=== PATIENT | female | born 1975 | race Caucasian/White ===

== ENCOUNTER 2020-08-15 20:04 | Emergency (ER) | payer MEDICARE, MEDICAID ==
[~2020-08-15] VITALS: Ht 157 cm; Wt 82.5 kg
[~2020-08-15 20:04] MED LIST: ALBU8.5H4 IH; CYCL10TA9 PO; CYCL5TAB11 PO; NAPR-243 PO
--- NOTE | 2020-08-15 20:11 | ED EENT ---
History of Present Illness General Stated Complaint: DENTAL PAIN Source: patient Exam Limitations: no limitations History of Present Illness Date Seen by Provider: August 15, 2020 Time Seen by Provider: 20:09 Initial Comments Called to the ambulance bay to help this lady out of her car with a wheelchair because of her severe dental pain. She has been at [facility] 3 times over the past week and is scheduled to see a dentist on Monday of this upcoming week. She is on amoxicillin and hydrocodone 10/325. Timing/Duration: last week Severity: moderate Location: dental Associated Symptoms: denies symptoms Allergies and Home Medications Allergies Coded Allergies: No Known Drug Allergies (Unverified , 12/14/11) Home Medications Clindamycin HCl 300 Mg Capsule, 300 MG PO TID Prescribed by: ENEDELIA GONZALEZ on 08/15/202035 Cyclobenzaprine Hcl 5 Mg Tablet, 1 EACH PO QID PRN, (Reported) Cyclobenzaprine Hcl 10 Mg Tablet, 1 EACH PO Q8HR PRN FOR MUSCLE SPASMS Prescribed by: DARCY SHRESTHA on 12/14/111658 Hydrocodone/Acetaminophen 1 Each Tablet, 1 EACH PO Q4H PRN for NAUSEA/VOMITING Do not fill unless clindamycin is also filled Prescribed by: ENEDELIA GONZALEZ on 08/15/202035 Naproxen 500 Mg Tablet, 1 EACH PO TID PRN FOR PAIN Prescribed by: DARCY SHRESTHA on 12/14/111658 Patient Home Medication List Home Medication List Reviewed: Yes Review of Systems Review of Systems Constitutional: see HPI Eyes: No Symptoms Reported Ears: No Symptoms Reported Nose: no symptoms reported Mouth: see HPI Throat: no symptoms reported Respiratory: no symptoms reported Cardiovascular: no symptoms reported Musculoskeletal: no symptoms reported Physical Exam Vital Signs Vital Signs - First Documented 08/15/20 20:08 Pulse 99 Resp 20 B/P (MAP) 149/99 (116) Pulse Ox 97 O2 Delivery Room Air Height, Weight, BMI Height: '" Weight: lbs. oz. kg; BMI Method: General Appearance: WD/WN, no apparent distress, other (Hyperventilating) Eyes: bilateral eye normal inspection, bilateral eye PERRL, bilateral eye EOMI Ears: bilateral ear auricle normal, bilateral ear canal normal, bilateral ear TM normal Neck: non-tender, full range of motion Respiratory: no respiratory distress, no accessory muscle use Neurologic/Psychiatric: alert, normal mood/affect, oriented x 3 Skin: normal color, warm/dry Progress/Results/Core Measures Results/Orders Lab Results Laboratory Tests Test 08/15/20 20:08 08/15/20 20:16 Range/Units White Blood Count 7.1 4.3-11.0 10^3/uL Red Blood Count 4.84 3.80-5.11 10^6/uL Hemoglobin 13.4 11.5-16.0 g/dL Hematocrit 42 35-52 % Mean Corpuscular Volume 86 80-99 fL Mean Corpuscular Hemoglobin 28 25-34 pg Mean Corpuscular Hemoglobin Concent 32 32-36 g/dL Red Cell Distribution Width 13.4 10.0-14.5 % Platelet Count 391 130-400 10^3/uL Mean Platelet Volume 9.4 9.0-12.2 fL Immature Granulocyte % (Auto) 0 % Neutrophils (%) (Auto) 59 42-75 % Lymphocytes (%) (Auto) 27 12-44 % Monocytes (%) (Auto) 10 0-12 % Eosinophils (%) (Auto) 2 0-10 % Basophils (%) (Auto) 1 0-10 % Neutrophils # (Auto) 4.2 1.8-7.8 10^3/uL Lymphocytes # (Auto) 1.9 1.0-4.0 10^3/uL Monocytes # (Auto) 0.7 0.0-1.0 10^3/uL Eosinophils # (Auto) 0.2 0.0-0.3 10^3/uL Basophils # (Auto) 0.1 0.0-0.1 10^3/uL Immature Granulocyte # (Auto) 0.0 0.0-0.1 10^3/uL Sodium Level 135 135-145 MMOL/L Potassium Level 3.2 L 3.6-5.0 MMOL/L Chloride Level 101 98-107 MMOL/L Carbon Dioxide Level 22 21-32 MMOL/L Anion Gap 12 5-14 MMOL/L Blood Urea Nitrogen 12 7-18 MG/DL Creatinine 0.83 0.60-1.30 MG/DL Estimat Glomerular Filtration Rate > 60 BUN/Creatinine Ratio 14 Glucose Level 111 H 70-105 MG/DL Calcium Level 9.0 8.5-10.1 MG/DL Urine Color YELLOW Urine Clarity CLEAR Urine pH 6.0 5-9 Urine Specific [place] 1.020 1.016-1.022 Urine Protein NEGATIVE NEGATIVE Urine Glucose (UA) NEGATIVE NEGATIVE Urine Ketones NEGATIVE NEGATIVE Urine Nitrite NEGATIVE NEGATIVE Urine Bilirubin NEGATIVE NEGATIVE Urine Urobilinogen 0.2 < = 1.0 MG/DL Urine Leukocyte Esterase NEGATIVE NEGATIVE Urine RBC (Auto) TRACE-I NEGATIVE Urine RBC 0-2 /HPF Urine WBC RARE /HPF Urine Squamous Epithelial Cells 2-5 /HPF Urine Crystals NONE /LPF Urine Bacteria TRACE /HPF Urine Casts NONE /LPF Urine Mucus SMALL H /LPF Urine Culture Indicated NO Urine Opiates Screen POSITIVE H NEGATIVE Urine Oxycodone Screen NEGATIVE NEGATIVE Urine Methadone Screen NEGATIVE NEGATIVE Urine Propoxyphene Screen NEGATIVE NEGATIVE Urine Barbiturates Screen NEGATIVE NEGATIVE Ur Tricyclic Antidepressants Screen POSITIVE H NEGATIVE Urine Phencyclidine Screen NEGATIVE NEGATIVE Urine Amphetamines Screen NEGATIVE NEGATIVE Urine Methamphetamines Screen NEGATIVE NEGATIVE Urine Benzodiazepines Screen POSITIVE H NEGATIVE Urine Cocaine Screen NEGATIVE NEGATIVE Urine Cannabinoids Screen NEGATIVE NEGATIVE My Orders Orders - ENEDELIA GONZALEZ APRN Cbc With Automated Diff (08/15/20 20:08) Basic Metabolic Panel (08/15/20 20:08) Ua Culture If Indicated (08/15/20 20:08) Drug Screen Stat (Urine) (08/15/20 20:08) Ed Iv/Invasive Line Start (08/15/20 20:08) Ceftriaxone For Iv Use (Rocephin For I (08/15/20 20:15) Ketorolac Injection (Toradol Injection) (08/15/20 20:15) Lidocaine/Epi 1% 1:100,000 (Xylocaine /E (08/15/20 20:15) Ns Iv 1000 Ml (Sodium Chloride 0.9%) (08/15/20 20:15) Lidocaine/Epi 2% 1:100,000 (Xylocaine/Ep (08/15/20 20:19) Rx-Oxycodone/Apap 5-325 Mg (Rx-Percocet (08/15/20 20:45) Medications Given in ED Current Medications Medications Dose Ordered Sig/David Route Start Time Stop Time Status Last Admin Dose Admin Ceftriaxone Sodium 1000 mg/ Sterile Water 10 ml @ 200 mls/hr ONCE ONCE IV 08/15/20 20:15 08/15/20 20:17 DC 08/15/20 20:21 200 MLS/HR Ketorolac Tromethamine 30 mg ONCE ONCE IVP 08/15/20 20:15 08/15/20 20:16 DC 08/15/20 20:20 30 MG Vital Signs/I&O 08/15/20 20:08 Pulse 99 Resp 20 B/P (MAP) 149/99 (116) Pulse Ox 97 O2 Delivery Room Air Departure Communication (Admissions) 2047-did incision and drainage of the fluctuant abscess with only minimal purulent material expressed. This was done after inferior alveolar nerve block using 1.5 mL of 2% lidocaine with epinephrine and then some more local 0.5 mL of lidocaine with epinephrine. 11 blade scalpel was then used to make a small incision adjacent to the affected tooth. Impression Primary Impression: Dental abscess Disposition: HOME, SELF-CARE Condition: Stable Departure-Patient Inst. Decision time for Depature: 20:34 Referrals: COCO RICHARDSON DO (PCP) Primary Care Physician [facility]NN (Family) Primary Care Physician Patient Instructions: Dental Pain (DC) Add. Discharge Instructions: 1. Antibiotics as directed. Follow-up with your dentist. Stop the amoxicillin and change to clindamycin tomorrow. Scripts Clindamycin HCl (Clindamycin HCl) 300 Mg Capsule 300 MG PO TID, #21 CAP Prov: ENEDELIA GONZALEZ APRN 08/15/20 Hydrocodone/Acetaminophen (Hydrocodone-Acetamin 7.5-325) 1 Each Tablet 1 EACH PO Q4H PRN for NAUSEA/VOMITING, #10 TAB Do not fill unless clindamycin is also filled Prov: ENEDELIA GONZALEZ APRN 08/15/20 ENEDELIA GONZALEZ APRN August 15, 2020 20:11
[2020-08-15 20:15] LABS: BASOPHILS # (AUTO) 0.1 10^3/uL (0.0-0.1); BASOPHILS % (AUTO) 1 % (0-10); EOSINOPHILS # (AUTO) 0.2 10^3/uL (0.0-0.3); EOSINOPHILS % (AUTO) 2 % (0-10); HEMATOCRIT 42 % (35-52); HEMOGLOBIN 13.4 g/dL (11.5-16.0); LYMPHOCYTES # (AUTO) 1.9 10^3/uL (1.0-4.0); LYMPHOCYTES % (AUTO) 27 % (12-44); MEAN CORPUSCULAR HEMOGLOBIN 28 pg (25-34); MEAN CORPUSCULAR HGB CONC 32 g/dL (32-36); MEAN CORPUSCULAR VOLUME 86 fL (80-99); MEAN PLATELET VOLUME 9.4 fL (9.0-12.2); MONOCYTES # (AUTO) 0.7 10^3/uL (0.0-1.0); MONOCYTES % (AUTO) 10 % (0-12); NEUTROPHILS # (AUTO) 4.2 10^3/uL (1.8-7.8); NEUTROPHILS % (AUTO) 59 % (42-75); PLATELET COUNT 391 10^3/uL (130-400); WHITE BLOOD COUNT 7.1 10^3/uL (4.3-11.0)
[2020-08-15] MEDS ORDERED: NS IV 1000 ML 1,000 ML IV SCH (20:15)
[2020-08-15] MEDS ORDERED: LIDOCAINE/EPI 1%-1:100,000 (XYLOCAINE) 20ML INJ ONE (20:15)
[2020-08-15] MEDS ORDERED: cefTRIAXone FOR IV USE 1,000 MG in WATER (STERILE) FOR INJECTION 10 ML IV ONE (20:15)
[2020-08-15] MEDS ORDERED: KETOROLAC 30 MG/ML VIAL IVP ONE (20:15)
[2020-08-15] MEDS ORDERED: LIDOCAINE/EPI 2% 1:100,00 (XYLOCAINE) 20 ML VIAL ONE (20:19)
[2020-08-15 20:21] LABS: BILIRUBIN,URINE NEGATIVE (NEGATIVE); CLARITY,URINE CLEAR; COLOR,URINE YELLOW; GLUCOSE, URINE (UA) NEGATIVE (NEGATIVE); KETONES,URINE NEGATIVE (NEGATIVE); LEUKOCYTE ESTERASE ,URINE NEGATIVE (NEGATIVE); NITRITE,URINE NEGATIVE (NEGATIVE); PROTEIN,URINE NEGATIVE (NEGATIVE)
[2020-08-15 20:27] LABS: BACTERIA,URINE TRACE /HPF; RBC,URINE 0-2 /HPF; WBC,URINE RARE /HPF
[2020-08-15 20:28] LABS: CHLORIDE 101 MMOL/L (98-107); POTASSIUM 3.2 MMOL/L (3.6-5.0); SODIUM 135 MMOL/L (135-145)
[2020-08-15 20:30] LABS: GLUCOSE 111 MG/DL (70-105)
[2020-08-15 20:31] LABS: CARBON DIOXIDE 22 MMOL/L (21-32)
[2020-08-15 20:32] LABS: AMPHETAMINE SCREEN, URINE NEGATIVE (NEGATIVE); BARBITURATE SCREEN URINE NEGATIVE (NEGATIVE); BENZODIAZEPINES SCREEN URINE POSITIVE (NEGATIVE); CANNABINOID SCREEN, URINE NEGATIVE (NEGATIVE); COCAINE SCREEN URINE NEGATIVE (NEGATIVE); METHADONE STAT NEGATIVE (NEGATIVE); METHAMPHETAMINE SCREEN URINE S NEGATIVE (NEGATIVE); OPIATE SCREEN URINE POSITIVE (NEGATIVE); OXYCODONE STAT NEGATIVE (NEGATIVE); PROPOXYPHENE STAT NEGATIVE (NEGATIVE); TRICYCLIC ANTIDEPRESSANTS SCRE POSITIVE (NEGATIVE)
[2020-08-15] MEDS ORDERED: HYDR-3817 PO (20:36)
[2020-08-15] MEDS ORDERED: CLIN300C12 PO (20:36)
[2020-08-15 20:42] LABS: BUN/CREATININE RATIO 14; CREATININE SERUM 0.83 MG/DL (0.60-1.30); GFR ESTIMATED > 60
[2020-08-15] MEDS ORDERED: RX-OXYCODONE/APAP 5-325 MG #4 TAB PK PO PRN (20:45)
[2020-08-15] MEDS ORDERED: PROMETHAZINE INJ 25 MG/ML (PHENERGAN) AMP IVP ONE (21:00)
[2020-08-15 21:12] VITALS: BP 140/93
== END 2020-08-15 21:12 | disposition home or self-care (01) ==
LOC: EDUNIT# 20:04 → ER 20:06
DX: K04.7 Periapical abscess without sinus (principal)
CPT/HCPCS: 36415; 80048; 80306; 81000; 85025